=== PATIENT | female | born 1985 | race Caucasian/White ===

== ENCOUNTER 2017-01-10 14:38 | Emergency (ER) | payer OTHER ==
[2017-01-10] MEDS ORDERED: KETOROLAC TROMETHAMINE 60 MG/2 ML SDV IM ONE (16:13)
--- NOTE | 2017-01-10 16:20 | ER Document Report ---
ED Extremity Problem, Upper - General Chief Complaint: Shoulder Pain Stated Complaint: RIGHT SHOULDER PAIN Time Seen by Provider: 01/10/17 16:04 Mode of Arrival: Ambulatory Information source: Patient Notes: 28-year-old female presents to ED for right shoulder pain. She states she woke up last week with her shoulder stiff and sore. States at that night each night it has become progressively more sore and painful until at work she was not able to lift her hand above her head. At this time she is not able to lift her hand and arm very high without a lot of pain. States she took a half a Percocet last night with some help other than that she has not been using ice heat or ibuprofen. TRAVEL OUTSIDE OF THE [place] IN LAST 30 DAYS: No - HPI Patient complains to provider of: Shoulder Onset: Other - 9 days Recent injury: No Where: Home Quality of pain: Sharp, Throbbing Severity of pain: Moderate Pain Level: 4 - She moves her arm Associated symptoms: None Exacerbated by: Movement Relieved by: Rest, Positioning Similar symptoms previously: No Recently seen / treated by doctor: No - Related Data Allergies/Adverse Reactions: nitrous oxide [Nitrous Oxide] Allergy (Verified 01/10/17 15:22) Past Medical History - General Information source: Patient - Social History Smoking Status: Current Every Day Smoker Cigarette use (# per day): Yes - 1 pack every 2 week Chew tobacco use (# tins/day): No Smoking Education Provided: Yes - 1 minute Frequency of alcohol use: Social Drug Abuse: None 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 Lives with: Family Family History: None, Reviewed & Not Pertinent Patient has suicidal ideation: No Patient has homicidal ideation: No - Past Medical History Cardiac Medical History: Reports: None Pulmonary Medical History: Reports: None EENT Medical History: Reports: None Neurological Medical History: Reports: None Endocrine Medical History: Reports: None Renal/ Medical History: Reports: Hx Ovarian Cysts Malignancy Medical History: Reports: None GI Medical History: Reports: None Musculoskeltal Medical History: Reports Hx Musculoskeletal Trauma Skin Medical History: Reports None Psychiatric Medical History: Reports: None Traumatic Medical History: Reports: Hx Fractures Infectious Medical History: Reports: None Past Surgical History: Reports: Hx Breast Surgery - augmentation - Immunizations Hx Diphtheria, Pertussis, Tetanus Vaccination: No Review of Systems - Review of Systems Constitutional: No symptoms reported EENT: No symptoms reported Cardiovascular: No symptoms reported Respiratory: No symptoms reported Gastrointestinal: No symptoms reported Genitourinary: No symptoms reported Female Genitourinary: No symptoms reported Musculoskeletal: Joint pain, Muscle pain, Other - Shoulder pain and stiffness Skin: No symptoms reported Hematologic/Lymphatic: No symptoms reported Neurological/Psychological: No symptoms reported -: Yes All other systems reviewed and negative Physical Exam - Vital signs Vitals: Temp Pulse Resp BP Pulse Ox 97.9 F 69 18 113/63 97 01/10/17 15:25 01/10/17 15:25 01/10/17 15:25 01/10/17 15:25 01/10/17 15:25 Interpretation: Normal - General General appearance: Appears well, Alert - HEENT Head: Normocephalic, Atraumatic Eyes: Normal Pupils: PERRL - Respiratory Respiratory status: No respiratory distress Chest status: Nontender Breath sounds: Normal Chest palpation: Normal - Cardiovascular Rhythm: Regular Heart sounds: Normal auscultation Murmur: No - Abdominal Inspection: Normal Distension: No distension Bowel sounds: Normal Tenderness: Nontender Organomegaly: No organomegaly - Back Back: Normal, Nontender - Extremities General upper extremity: Normal inspection, Normal color, Normal temperature General lower extremity: Normal inspection, Nontender, Normal color, Normal ROM , Normal temperature, Normal weight bearing. No: Obey's sign Shoulder: Tender, Limited ROM - Pain. No: Abrasion, Deformity, Dislocation, Ecchymosis, Instability, Laceration Arm: Tender - Neurological Neuro grossly intact: Yes Cognition: Normal Orientation: AAOx4 [place] Coma Scale Eye Opening: Spontaneous [place] Coma Scale Verbal: Oriented [place] Coma Scale Motor: Obeys Commands [place] Coma Scale Total: 15 Speech: Normal Motor strength normal: LUE, RUE, LLE, RLE Sensory: Normal - Psychological Associated symptoms: Normal affect, Normal mood - Skin Skin Temperature: Warm Skin Moisture: Dry Skin Color: Normal Course - Re-evaluation Re-evalutation: 01/10/17 20:57 Discussed chest x-ray with patient. Patient given instructions for range of motion for shoulder use of ibuprofen, prescription for muscle relaxers, and instructions for ice and heat. Patient also instructed to follow-up with orthopedic. - Vital Signs Vital signs: Temp Pulse Resp BP Pulse Ox 97.9 F 69 18 113/63 97 01/10/17 15:25 01/10/17 15:25 01/10/17 15:25 01/10/17 15:25 01/10/17 15:25 - Diagnostic Test Radiology reviewed: Image reviewed, Reports reviewed Discharge - Discharge Clinical Impression: Right shoulder pain Qualifiers: Chronicity: acute Qualified Code(s): M25.511 - Pain in right shoulder Condition: Stable Disposition: HOME, SELF-CARE Instructions: Exercise Program for the Shoulder ([facility]) Additional Instructions: You were seen today for right shoulder pain. Your x-rays did not show any radiological evidence of injury. Your pain is muscular. I am going to give you some exercises to do with your shoulder. Recommend ibuprofen every 8 hours. We will give you the name and number of orthopedics to follow-up with. Do not hold your shoulder stiff as it will make the pain worse and could cause a frozen shoulder. Ibuprofen Ibuprofen is an excellent, safe drug for pain control. In addition, it has potent antiinflammatory effects which are beneficial, especially in the treatment of injuries, arthritis, or tendonitis. It's best to take ibuprofen with food. Persons with ulcer disease or allergy to aspirin should notify their physician of this before taking ibuprofen. Take the medication exactly as prescribed. Don't take additional doses unless instructed to do so by your doctor. If you develop wheezing, shortness of breath, hives, faintness, stomach pain, vomiting, or dark black stools, return for re-evaluation at once. ICE PACKS: Apply ice packs frequently against the painful area. Many different schedules are recommended, such as "20 minutes on, 20 minutes off" or "one hour ice, two hours rest." If you need to work, you may need to go longer between ice treatments. You should plan to have the area ice packed AT LEAST one fourth of the time. The ice should be applied over the wrap, tape, or splint, or over a layer of cloth -- not directly against the skin. Some ice bags have a built-in cloth and can be put directly on the skin. WARM PACKS: After approximately two days, apply gentle heat (such as a heating pad or hot water bottle) for about 20 to 30 minutes about every two hours -- at least four times daily. Warmth and elevation will help you make a more rapid recovery , and will ease the pain considerably. Do not use HOT heat, and never apply heat for longer than 30 minutes. The continuous heat can invisibly damage skin and muscles -- even when no burn is seen on the surface. Damaged muscles can make you MORE sore. MUSCLE RELAXERS: Muscle relaxing medications are usually prescribed for acute muscle spasm or injury to the neck and back. They are often combined with antiinflammatory pain medication for increased relief. You may stop the muscle relaxer when the pain and stiffness have improved. Start the medication again if spasms recur. Muscle relaxers may cause drowsiness, especially with the first dose. Do not operate machinery or drive while under the effects of the medication. Most muscle relaxers last up to 24 hours. Do not combine the medication with alcohol. FOLLOW-UP CARE: If you have been referred to a physician for follow-up care, call the physician s office for an appointment as you were instructed or within the next two days. If you experience worsening or a significant change in your symptoms, notify the physician immediately or return to the Emergency Department at any time for re-evaluation. Prescriptions: Ibuprofen 600 mg PO Q8HP PRN #20 tablet PRN Reason: Cyclobenzaprine HCl [Flexeril 5 mg Tablet] 5 mg PO TID #15 tablet Forms: Smoking Cessation Education, Return to Work Referrals: RACHID SEPULVEDA MD [ACTIVE STAFF] - Follow up as needed
--- NOTE | 2017-01-10 16:44 | RADIOLOGY REPORT (SQ) ---
EXAM DESCRIPTION: SHOULDER RIGHT 2 OR MORE VIEWS COMPLETED DATE/TIME: 01/10/2017 4:35 pm REASON FOR STUDY: pain decreased ROM COMPARISON: None. NUMBER OF VIEWS: Three views. TECHNIQUE: Internal rotation, external rotation, and Y view images acquired of the right shoulder. LIMITATIONS: None. FINDINGS: MINERALIZATION: Normal. BONES: No acute fracture or dislocation. No worrisome bone lesions. JOINTS: No dislocation. VISUALIZED LUNGS AND RIBS: No pneumothorax. No rib fracture. SOFT TISSUES: No radiopaque foreign body. OTHER: No other significant finding. IMPRESSION: NEGATIVE STUDY OF THE RIGHT SHOULDER. NO RADIOGRAPHIC EVIDENCE OF ACUTE INJURY. TECHNICAL DOCUMENTATION: JOB ID: [id number] [employer]- All Rights Reserved
[2017-01-10 17:52] VITALS: BP 114/68
== END 2017-01-10 17:36 | disposition home or self-care (01) ==
LOC: ER 14:38
DX: M25.511 Pain in right shoulder (principal); F17.210 Nicotine dependence, cigarettes, uncomplicated
CPT/HCPCS: 99283; 96372; 73030; J1885

== ENCOUNTER → 2017-10-01 | Outpatient (CLI) | payer SELFPAY ==
--- NOTE | 2017-10-01 16:23 | RADIOLOGY REPORT (SQ) ---
EXAM DESCRIPTION: U/S OB 14+ TRNABD 1GES W/O DOP COMPLETED DATE/TIME: 10/01/2017 2:39 pm REASON FOR STUDY: Z34.81 ENCOUNTER FOR SUPRVSN OF NORMAL , FIRST TRIMESTER Z34.81 ENCOUNTE R FOR SUPRVSN OF NORMAL , FIRST TRIM COMPARISON: None. TECHNIQUE: Static and Dynamic grayscale imaging performed of gravid uterus using transabdominal appr oach. Additional selected color Doppler and spectral images recorded. All stored on PACS. LIMITATIONS: None. FINDINGS: EGA: 14 weeks 5 days LISA: 03/27/2018 EFW: Not calculated PERCENTILE: Not calculated CONSTANTIN: Adequate PLACENTA: Anterior GRADE: I PRESENTATION: Variable ANATOMY: HEART RATE: 123 beats per minute. FOUR CHAMBER HEART: Not visualized THREE VESSEL CORD: Not visualized CORD INSERTION: Not visualized KIDNEYS AND BLADDER: Not visualized STOMACH: Identified SPINE: Normal as visualized. BRAIN AND LATERAL VENTRICLES: Not well seen OTHER: No other significant finding. MATERNAL ADNEXA: Maternal ovaries not visualized. CERVICAL LENGTH: 6 cm Closed. OTHER: No other significant finding. IMPRESSION: LIVING INTRAUTERINE . ESTIMATED GESTATIONAL AGE 14 weeks 5 days Limited anatomic survey Trimester of : Second trimester - 13 weeks 1 day to 27 weeks 6 days. TECHNICAL DOCUMENTATION: JOB ID: [id number] [employer] All Rights Reserved Reading location - IP/workstation name: [email or web address]
== END ==
LOC: RAD 13:46
PROVIDERS: ATTEND Nurse Practitioner Women's Health
DX: Z34.82 Encounter for supervision of other normal pregnancy, second trimester (principal)
CPT/HCPCS: 76805

== ENCOUNTER → 2018-10-28 | Outpatient (CLI) | payer MEDICAID ==
--- NOTE | 2018-10-28 16:09 | RADIOLOGY REPORT (SQ) ---
EXAM DESCRIPTION: U/S [id number] TRNABD 1GES W/ODOP COMPLETED DATE/TIME: 10/28/2018 3:29 pm REASON FOR STUDY: Z34.81 ENCOUNTER FOR SUPRVSN OF NORMAL , FIRST TRIMESTER Z34.81 ENCOUNTE R FOR SUPRVSN OF NORMAL , FIRST TRIM COMPARISON: 10/01/2017 TECHNIQUE: Transabdominal static and realtime grayscale images acquired of the pelvis. Additional se lected spectral and color Doppler images recorded. All images stored on PACs. bHCG: Not available. CLINICAL DATES: A weeks 5 days. LIMITATIONS: None. FINDINGS: FETUS: Single Living intrauterine . ULTRASOUND EGA: 8 weeks 3 days. ULTRASOUND LISA: 06/06/2019 EFW: Not applicable less than 20 weeks. CRL: Present. FHR: 180 beats per minute. SURVEY: Too early to assess. AMNIOTIC FLUID: Adequate amount. PLACENTA: Not yet developed due to early gestation. SUBCHORIONIC BLEED: Yes. SIZE OF BLEED: 2.5 x 1.3 x 1.3 cm. UTERUS: No masses. No anomalies. CERVICAL LENGTH: 3.1 cm. Closed. RIGHT ADNEXA: Ovary not identified due to poor acoustical window. No adnexal free fluid. No adnexal masses. LEFT ADNEXA: Normal ovary with normal vascular flow. No adnexal free fluid. No adnexal masses. FREE FLUID: None. OTHER: No other significant finding. IMPRESSION: LIVING INTRAUTERINE . EGA A WEEKS 3 DAYS. THERE IS A SMALL SUBCHORIONIC BLEED. Trimester of : First - 0 to 13 weeks. TECHNICAL DOCUMENTATION: JOB ID: [id number]- All Rights Reserved rev-12/20 Reading location - IP/workstation name: [email or web address]
== END ==
LOC: RAD 14:49
PROVIDERS: ATTEND Midwife
DX: Z34.81 Encounter for supervision of other normal pregnancy, first trimester (principal)
CPT/HCPCS: 76801

== ENCOUNTER 2018-12-06 21:42 | Emergency (ER) | payer MEDICAID ==
[2018-12-06] MEDS ORDERED: NORMAL SALINE 1000 ML 1,000 ML IV ONE (22:54)
[2018-12-06] MEDS ORDERED: METOCLOPRAMIDE HCL INJ/PF 10 MG/2 ML SDV IV ONE (22:55)
--- NOTE | 2018-12-06 23:17 | ER Document Report ---
ED General - General Chief Complaint: Vomiting Stated Complaint: VOMITING Time Seen by Provider: 12/06/18 22:49 Primary Care Provider: JAD JEFF CNM [Primary Care Provider] - Follow up as needed Notes: Patient is a pleasant 33-year-old female who presents with complaint of vomiting and diarrhea. Patient is 14 weeks . She says she sometimes have this some morning sickness but says that this very well controlled. Said today after eating chicken from [employer] she started having vomiting and diarrhea. Blood in her stool. No blood in her emesis. No fevers. She says she has some mild epigastric pain when she vomits but otherwise denies any abdominal pain. No abnormal vaginal bleeding or discharge. No other complaints at this time. TRAVEL OUTSIDE OF THE [place] IN LAST 30 DAYS: No - Related Data Allergies/Adverse Reactions: nitrous oxide [Nitrous Oxide] Allergy (Verified 12/06/18 21:49) Past Medical History - Social History Smoking Status: Never Smoker Frequency of alcohol use: None Drug Abuse: None Family History: None, Reviewed & Not Pertinent Patient has suicidal ideation: No Patient has homicidal ideation: No Renal/ Medical History: Reports: Hx Ovarian Cysts. Denies: Hx Peritoneal Dialysis Musculoskeletal Medical History: Reports Hx Musculoskeletal Trauma Traumatic Medical History: Reports: Hx Fractures Past Surgical History: Reports: Hx Breast Surgery - augmentation - Immunizations Hx Diphtheria, Pertussis, Tetanus Vaccination: No Review of Systems - Review of Systems Notes: My Normal Review Basic REVIEW OF SYSTEMS: CONSTITUTIONAL : Denies fever, chills, or sweats. Denies recent illness. EENT: Denies eye, ear, throat, or mouth pain or symptoms. Denies nasal or sinus congestion. RESPIRATORY: Denies cough, cold, or chest congestion. Denies shortness of breath, difficulty breathing, or wheezing. GASTROINTESTINAL: Mild epigastric pain. Vomiting and diarrhea. GENITOURINARY: Denies difficulty urinating, painful urination, burning, frequency, or blood in urine. FEMALE GENITOURINARY: Denies vaginal bleeding, abnormal or irregular periods. 14 weeks MUSCULOSKELETAL: Denies neck or back pain or joint pain or swelling. SKIN: Denies rash or skin lesions. NEUROLOGICAL: Denies altered mental status or loss of consciousness. Denies headache. Denies weakness or paralysis or loss of use of either side. Denies problems with gait or speech. Denies sensory or motor loss. ALL OTHER SYSTEMS REVIEWED AND NEGATIVE. Physical Exam - Vital signs Vitals: Temp Pulse Resp BP Pulse Ox 98.4 F 117 H 12 123/68 100 12/06/18 21:48 12/06/18 21:48 12/06/18 21:48 12/06/18 21:48 12/06/18 21:48 - Notes Notes: General Appearance: Well nourished, alert, cooperative, no acute distress, no obvious discomfort. Well-appearing. Vitals: reviewed, See vital signs table. Eyes: PERRL, EOMI, Conjuctiva clear Mouth: No decreasd moisture Lungs: No wheezing, No rales, No rhonci, No accessory muscle use, good air exchange bilaterally. Heart: Normal rate, Regular rythm, No murmur, no rub Abdomen: Normal BS, soft, No rigidity, mild epigastric pain palpation. Remainder of abdomen is nontender. No right upper quadrant tenderness., No guarding, no rebound, no abdominal masses, no organomegaly Extremities: good pulses in all extremities, no swelling or tenderness in the extremities, no edema. Skin: warm, dry, appropriate color, no rash Neuro: speech clear, oriented x 3, normal affect, responds appropriately to questions. Course - Re-evaluation Re-evalutation: 12/07/18 00:25 Patient's nausea is gone. She feels much improved. She looks well. Bedside heart tones performed by the nurse 110. I suspect that this is most likely the patient's heart rate. I therefore did a bedside ultrasound which showed intrauterine with good movement and a heart rate of 165. The Reglan worked well for the patient. I will write a prescription for this. I encouraged her to return to ER immediately if she has intractable vomiting, bloody stools, fevers, abdominal pain, or if she feels unwell in any way. Patient agrees with plan and will be discharged home. Dictation of this chart was performed using voice recognition software; therefore, there may be some unintended grammatical errors. - Vital Signs Vital signs: Temp Pulse Resp BP Pulse Ox 98.4 F 117 H 12 123/68 100 12/06/18 21:48 12/06/18 21:48 12/06/18 21:48 12/06/18 21:48 12/06/18 21:48 - Laboratory Result Diagrams: 12/06/18 23:28 12/06/18 23:28 Laboratory results interpreted by me: 12/06/18 12/06/18 23:28 23:28 RDW 14.1 H Seg Neutrophils % 89.2 H Lymphocytes % 6.2 L Absolute Lymphocytes 0.4 L Sodium 136.6 L Potassium 3.3 L Discharge - Discharge Clinical Impression: Hypokalemia, Vomiting and diarrhea Condition: Good Disposition: HOME, SELF-CARE Additional Instructions: Your potassium was just a little bit low. We therefore given you some potassium pills here. Please eat potassium containing foods such as bananas. Please eat a bland diet over the next 24 hours. Please drink lots of non-caffeinated liquids. Please take the Reglan as needed for nausea and vomiting. Return to ER immediately if you have fevers, abdominal pain, bloody stools, or intractable vomiting. Follow-up with your OB doctor in 3 to 4 days for reevaluation. Prescriptions: Metoclopramide HCl [Reglan 10 mg Tablet] 1 tab PO ASDIR PRN #25 tablet PRN Reason:
[2018-12-06 23:39] LABS: ABSOLUTE LYMPHOCYTES (AUTO) 0.4 10^3/uL (0.5-4.7); ABSOLUTE MONOCYTES (AUTO) 0.3 10^3/uL (0.1-1.4); ABSOLUTE NEUT (AUTO) 5.9 10^3/uL (1.7-8.2); BASOPHILS % (AUTO) 0.3 % (0-2); EOSINOPHILS % (AUTO) 0.2 % (0-6); HEMOGLOBIN 12.4 g/dL (12.0-15.5); LYMPHOCYTES % (AUTO) 6.2 % (13-45); MEAN CORPUSCULAR HEMOGLOBIN 30.2 pg (27.0-33.4); MEAN CORPUSCULAR HGB CONC 34.6 g/dL (32.0-36.0); MEAN CORPUSCULAR VOLUME 87 fl (80-97); MONOCYTES % (AUTO) 4.1 % (3-13); PLATELET COUNT 183 10^3/uL (150-450); RED BLOOD COUNT 4.12 10^6/uL (3.72-5.28); RED CELL DISTRIBUTION WIDTH 14.1 % (11.5-14.0); SEGMENTED NEUTROPHILS % (AUTO) 89.2 % (42-78); TOTAL CELLS COUNTED % (AUTO) 100 %; WHITE BLOOD COUNT 6.7 10^3/uL (4.0-10.5)
[2018-12-07 00:05] LABS: ALANINE AMINOTRANSFERASE 23 U/L (9-52); ALBUMIN 3.8 g/dL (3.5-5.0); ALKALINE PHOSPHATASE 43 U/L (38-126); ANION GAP 11 (5-19); ASPARTATE AMINO TRANSFERASE 18 U/L (14-36); BILIRUBIN,DIRECT 0.2 mg/dL (0.0-0.4); BILIRUBIN,TOTAL 0.4 mg/dL (0.2-1.3); BLOOD UREA NITROGEN 10 mg/dL (7-20); CALCIUM 8.8 mg/dL (8.4-10.2); CARBON DIOXIDE 25 mmol/L (22-30); CHLORIDE 101 mmol/L (98-107); GLUCOSE 101 mg/dL (75-110); POTASSIUM 3.3 mmol/L (3.6-5.0); SODIUM 136.6 mmol/L (137-145); TOTAL PROTEIN 6.6 g/dL (6.3-8.2)
[2018-12-07] MEDS ORDERED: POTASSIUM CHLORIDE 10 MEQ CAPSULE.ER PO ONE (00:18)
[2018-12-07] MEDS ORDERED: MAGNESIUM OXIDE 400 MG TABLET PO ONE (00:18)
[2018-12-07] MEDS ORDERED: NORMAL SALINE 1000 ML 1,000 ML IV ONE (00:53)
[2018-12-07 01:54] VITALS: BP 116/59
== END 2018-12-07 01:53 | disposition home or self-care (01) ==
LOC: ER 21:42
DX: O21.9 Vomiting of pregnancy, unspecified (principal); O26.892 Other specified pregnancy related conditions, second trimester; R19.7 Diarrhea, unspecified; R10.13 Epigastric pain; O99.282 Endocrine, nutritional and metabolic diseases complicating pregnancy, second trimester; E87.6 Hypokalemia; Z3A.14 14 weeks gestation of pregnancy
CPT/HCPCS: 99283; 96361; 96374; 36415; 85025; 80053; J3490; J2765; J7030 ×2

== ENCOUNTER 2019-05-07 16:38 | Outpatient (CLI) | payer MEDICAID ==
--- NOTE | 2019-05-07 17:24 | Non Stress Test Report ---
Non Stress Test Datetime Report Generated by CPN: 05/07/2019 17:24 DEMOGRAPHIC EGA NST: 35.6 INDICATION Indication for Study: Polyhydramnios MONITORING Monitor Explained: Monitor Explained; Test Explained; Patient Verbalized Understanding Time on Monitor: 05/07/2019 16:48 Time off Monitor: 05/07/2019 17:12 NST Duration: 24 NST INTERVENTIONS NST Interventions: PO Hydration Physician Notified NST: J.Bailey, CNM BABY A: [id number] BABY A Movement : Present Contraction Frequency : n/a FHR Baseline : 125 Accelerations : 15X15 Decelerations : None Variability : Moderate 6-25bpm NST Review: Meets Criteria for Reactive NST NST Review and Verified By : EUNICE Nath Results: Reactive NST REPORT Report Trigger: Send Report
== END 2019-05-07 17:31 | disposition home or self-care (01) ==
LOC: LC 16:38
PROVIDERS: ATTEND Obstetrics & Gynecology
PROC: 4A1HXCZ Monitoring of Products of Conception, Cardiac Rate, External Approach (ICD-10-PCS; principal; 2019-05-07)
DX: O40.3XX0 Polyhydramnios, third trimester, not applicable or unspecified (principal); O09.523 Supervision of elderly multigravida, third trimester; Z3A.35 35 weeks gestation of pregnancy
CPT/HCPCS: 59025

== ENCOUNTER 2019-05-11 16:37 | Outpatient (CLI) | payer MEDICAID ==
--- NOTE | 2019-05-11 18:44 | Non Stress Test Report ---
Non Stress Test Datetime Report Generated by CPN: 05/11/2019 18:43 DEMOGRAPHIC EGA NST: 36.3 MONITORING Monitor Explained: Monitor Explained; Test Explained; Patient Verbalized Understanding Time on Monitor: 05/11/2019 16:52 Time off Monitor: 05/11/2019 18:26 NST Duration: 94 NST INTERVENTIONS NST Interventions: None Physician Notified NST: K. Sneed, CNM BABY A: [id number] BABY A Movement : Present Contraction Frequency : none FHR Baseline : 135 Accelerations : 15X15 Decelerations : None Variability : Moderate 6-25bpm NST Review: Meets Criteria for Reactive NST NST Review and Verified By : C Juana RN NST Results: Reactive NST COMMENTS NST Comments: Dr Charli on unit reviewing FHT strip NST REPORT Report Trigger: Send Report
--- NOTE | 2019-05-11 19:22 | RADIOLOGY REPORT (SQ) ---
EXAM DESCRIPTION: U/S PROFILE W/O STRESS COMPLETED DATE/TIME: 05/11/2019 6:56 pm REASON FOR STUDY: BPP COMPARISON: None. TECHNIQUE: Limited payton-scale realtime and static images of the fetus to measure specified parameter s. LIMITATIONS: None. FINDINGS: HEART RATE: 150 beats per minute. CONSTANTIN: 22.3 cm. BREATHING MOVEMENT: 2 points. MOVEMENT: 2 points. POSTURE AND TONE: 2 points. QUALITATIVE CONSTANTIN: 2 points. OTHER: No other significant finding. IMPRESSION: BIOPHYSICAL PROFILE: 03/12. Trimester of : Third - 28 weeks to delivery COMMENT: BREATHING MOVEMENTS: 2 POINTS: PRESENT 0 POINTS: ABSENT MOTION: 2 POINTS: PRESENT 0 POINTS: ABSENT TONE: 2 POINTS: PRESENT 0 POINTS: ABSENT AMNIOTIC FLUID VOLUME: 2 POINTS: LARGEST POCKET GREATER THAN 2 CM DEPTH. 0 POINTS: NO POCKET OF 2 CM. TECHNICAL DOCUMENTATION: JOB ID: [id number] [employer]- All Rights Reserved Reading location - IP/workstation name: [email or web address]
== END 2019-05-11 19:16 | disposition home or self-care (01) ==
LOC: LC 16:37
PROVIDERS: ATTEND Obstetrics & Gynecology
PROC: 4A1HXCZ Monitoring of Products of Conception, Cardiac Rate, External Approach (ICD-10-PCS; principal; 2019-05-11)
DX: O09.523 Supervision of elderly multigravida, third trimester (principal); Z3A.36 36 weeks gestation of pregnancy
CPT/HCPCS: 59025; 76819

== ENCOUNTER 2019-05-28 15:01 | Inpatient (IN) | payer MEDICAID ==
[2019-05-28 16:07] LABS: APPEARANCE,URINE CLEAR; BILIRUBIN,URINE NEGATIVE (NEGATIVE); COLOR,URINE YELLOW; GLUCOSE, URINE NEGATIVE (NEGATIVE); KETONES,URINE NEGATIVE (NEGATIVE); LEUKOCYTE ESTERASE,URINE SMALL (NEGATIVE); NITRITE,URINE NEGATIVE (NEGATIVE); PROTEIN,URINE NEGATIVE (NEGATIVE); URINE SPECIFIC GRAVITY 1.006; UROBILINOGEN,URINE NEGATIVE mg/dL (<2.0)
[2019-05-28 16:42] LABS: URINE AMPHETAMINES SCREEN NEGATIVE; URINE BARBITURATES SCREEN NEGATIVE; URINE BENZODIAZEPINES SCREEN NEGATIVE; URINE COCAINE SCREEN NEGATIVE; URINE MARIJUANA (THC) SCREEN NEGATIVE; URINE METHADONE SCREEN NEGATIVE; URINE PHENCYCLIDINE SCREEN NEGATIVE
[2019-05-28] MEDS ORDERED: RINGERS SOLUTION,LACTATED 1,000 ML IV ONE (20:10)
[2019-05-28] MEDS ORDERED: RINGERS SOLUTION,LACTATED 1,000 ML IV PRN (20:10)
[2019-05-28 20:38] LABS: ABSOLUTE BASOPHILS # (AUTO) 0.1 10^3/uL (0.0-0.2); ABSOLUTE EOSINOPHILS # (AUTO) 0.1 10^3/uL (0.0-0.6); ABSOLUTE LYMPHOCYTES (AUTO) 2.8 10^3/uL (0.5-4.7); ABSOLUTE MONOCYTES (AUTO) 0.9 10^3/uL (0.1-1.4); ABSOLUTE NEUT (AUTO) 7.8 10^3/uL (1.7-8.2); BASOPHILS % (AUTO) 0.8 % (0-2); EOSINOPHILS % (AUTO) 0.6 % (0-6); HEMATOCRIT 33.9 % (36.0-47.0); HEMOGLOBIN 11.8 g/dL (12.0-15.5); MEAN CORPUSCULAR HEMOGLOBIN 31.1 pg (27.0-33.4); MEAN CORPUSCULAR HGB CONC 34.8 g/dL (32.0-36.0); MEAN CORPUSCULAR VOLUME 89 fl (80-97); MONOCYTES % (AUTO) 7.7 % (3-13); PLATELET COUNT 144 10^3/uL (150-450); RED BLOOD COUNT 3.79 10^6/uL (3.72-5.28); RED CELL DISTRIBUTION WIDTH 13.3 % (11.5-14.0); SEGMENTED NEUTROPHILS % (AUTO) 66.9 % (42-78); TOTAL CELLS COUNTED % (AUTO) 100 %; WHITE BLOOD COUNT 11.6 10^3/uL (4.0-10.5)
[2019-05-28] MEDS ORDERED: MISOPROSTOL 0.2 MG TABLET ONE (23:55)
[2019-05-28] MEDS ORDERED: LIDOCAINE 1% INJ-PF (10 MG/ML) 30 ML SDV ONE (23:55)
[2019-05-28] MEDS ORDERED: OXYTOCIN/NORMAL SALINE 20 UNIT/1,000 ML RTUINJ ONE (23:55)
[2019-05-28] MEDS ORDERED: FENTANYL/BUPIVACAINE/NS/PF 300 MCG/150 ML RTUINJ EPI ONE (23:55)
[2019-05-28] MEDS ORDERED: OXYTOCIN 10 UNIT/ML VIAL ONE (23:55)
[2019-05-28] MEDS ORDERED: BUPIVACAINE HCL 0.25 % INJ/PF (2.5 MG/1 ML) 30 ML VIAL ONE (23:55)
[2019-05-28] MEDS ORDERED: EPHEDRINE SULFATE INJ 50 MG/1 ML AMPULE ONE (23:55)
--- NOTE | 2019-05-29 03:21 | Admission Physical ---
Datetime Report Generated by CPN: 05/29/2019 03:21 CURRENT ADMISSION Chief Complaint: Uterine Contractions Indication for Induction: Polyhydramnios Admit Impression : Term, Intrauterine ; No Active Labor; Intact Membranes; Induction of Labor Admit Plan: Admit to Unit; Initiate Labor Protocol ALLERGIES Medication Allergies: Yes Medication Allergies: nitrous oxide (05/07/2019) Latex: No Latex Allergies Food Allergies: NONE Environmental Allergies: NONE OBSTETRICAL HISTORY EDC: 06/05/2019 00:00 : 4 Para: 2 Term: 2 : 0 SAB: 1 IAB: 1 Ectopic: 0 Livin Cesareans: 0 VBACs: 0 Multiple Births: 0 Gestational Diabetes: No Rh Sensitization: No Incompetent Cervix: No JACQUELYN: No Infertility: No ART Treatment: No Uterine Anomaly: No IUGR: No Hx Previous C/S: No Macrosomia: No Hx Loss/Stillborn: No PIH: No Hx : No Placenta Previa/Abruption: No Depression/PP Depression: No PTL/PROM: No Post Hemorrhage: No Current Procedures: Ultrasound; NST Obstetrical History Comments: G1- 2003 at 38 weeks, 7lb 5oz female- episiotomy G2- 2005 at 39 weeks, 6lbs 9oz female- episiotomy G3-2017 SAB at 15weeks G4- current poly SEE RECORDS Alcohol: No Marijuana : No Cocaine: No Other Illicit Drugs: No Cigarettes: Former Smoker. 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 Surgery: No Heart Disease: No Hosp/Surgery: Yes Autoimmune Disorder: No Anesthetic Complications: No Kidney Disease: No Abnormal Pap Smear: No Neuro/Epilepsy: No Psychiatric Disorders: No Other Medical Diseases: No Hepatitis/Liver Disease: No Significant Family History: No Varicosities/Phlebitis: No Trauma/Violence : No Thyroid Dysfunction: No Medical History Comments: BREAST AUGMENTATION INFECTIOUS HISTORY Gonorrhea: No Genital Herpes: No Chlamydia: No Tuberculosis: No Syphilis: No Hepatitis: No HIV/AIDS Exposure: No Rash or Viral Illness: No HPV: No PHYSICAL EXAM General: Normal HEENT: Normal Neurologic: Normal Thyroid: Deferred Heart: Normal Lungs: Normal Breast: Deferred Back: Normal Abdomen: Normal Genitourinary Exam: Normal Extremities: Normal DTRs: Normal Pelvic Type: Adequate Vital Signs: Reviewed VAGINAL EXAM Dilatation: 4 Effacement: 80 Station: 0 Contraction Comments: q2 -5 MEMBRANES Membranes: Intact FETUS A EGA: 38.6 Monitoring: External US FHR- Baseline: 145 Variability: Moderate 6-25bpm Accelerations: 15X15 Decelerations: None FHR Category: Category I Presentation: Vertex Admit Comment: 34yo at 38+6ega presents for significant polyhydramnios and irregular contractions. SOme cervical change upon evaluation and due to severe polyhydramnios and advanced cervical dilation recommendations given to admit for IOL. Varicella NI - vaccination pp. Informaseq normal. Polyhydramnios 31.1cm today. GBS negative. Admit for pitocin and AROM. Anticipate . PLANS FOR LABOR AND DELIVERY Labor and Delivery: None Pain Management: Epidural Feeding Preference: Breast Benefit of Breast Feed Discussed: Yes Circumcision: Yes INFORMED CONSENT Informed Consent Obtained: Vaginal Delivery; Induction of Labor; Risks, Benefits and Alternatives Discussed Signature: with User ID: [email or web address]
[2019-05-29] MEDS ORDERED: GLYCERIN/WITCH HAZEL LEAF 1 EACH MED..WIPE TP PRN (03:24)
[2019-05-29] MEDS ORDERED: MAGNESIUM HYDROXIDE SUSP 30 ML UDCUP PO PRN (03:24)
[2019-05-29] MEDS ORDERED: MEASLES,MUMPS&RUBELLA VACC/PF 0.5 ML VIAL SUBCUT PRN (03:24)
[2019-05-29] MEDS ORDERED: DIPH/PERTUSS(ACELL)/TETANUS VAC/PF 0.5 ML SYR (>=10YO) IM PRN (03:24)
[2019-05-29] MEDS ORDERED: MISOPROSTOL 0.2 MG TABLET PR PRN (03:24)
[2019-05-29] MEDS ORDERED: ACETAMINOPHEN 325 MG TABLET PO PRN (03:24)
[2019-05-29] MEDS ORDERED: ZOLPIDEM TARTRATE 5 MG TABLET PO PRN (03:24)
[2019-05-29] MEDS ORDERED: DIBUCAINE 1% OINTMENT 56 GM TP PRN (03:24)
[2019-05-29] MEDS ORDERED: PROMETHAZINE HCL 25 MG SUPP.RECT PR PRN (03:24)
[2019-05-29] MEDS ORDERED: PSEUDOEPHEDRINE HCL 30 MG TABLET PO PRN (03:24)
[2019-05-29] MEDS ORDERED: PROMETHAZINE HCL 25 MG TABLET PO PRN (03:24)
[2019-05-29] MEDS ORDERED: OXYTOCIN/NORMAL SALINE 20 UNIT/1,000 ML RTUINJ IV PRN (03:24)
[2019-05-29] MEDS ORDERED: ACETAMINOPHEN WITH CODEINE #3 TABLET PO PRN (03:24)
[2019-05-29] MEDS ORDERED: NA PHOS,M-B/NA PHOS,DI-BA (ADULT) 133 ML ENEMA PR PRN (03:24)
[2019-05-29] MEDS ORDERED: BENZOCAINE/MENTHOL AEROSOL SPRAY 56 ML TOP PRN (03:24)
[2019-05-29] MEDS ORDERED: PROMETHAZINE HCL INJ 25 MG/1 ML VIAL IV PRN (03:24)
[2019-05-29] MEDS ORDERED: DIPHENHYDRAMINE HCL 25 MG CAPSULE PO PRN (03:24)
--- NOTE | 2019-05-29 04:30 | Delivery Summary ---
Del Sum A-C Datetime Report Generated by CPN: 05/29/2019 04:30 DELIVERY PERSONNEL DELIVERY PERSONNEL: [id number] Delivery Doctor:: Rachael Archuleta MD Labor and Delivery Nurse:: Violet Metcalf RNdepartment head college or university Nurse:: Mitzi Grace RN Head Batcher/MANAGER SALT: Teresajose Slade, ST MATERNAL INFORMATION Delivery Anesthesia: Epidural Medications After Delivery: Pitocin Bolus-Please Comment; Cytotec 1000mcg Per Rectum/Vagina Estimated Blood Loss (ml): 100 Delivery QBL: 100 Delivery QBL Comment: 100ml Maternal Complications: Other Other Maternal Complications: polyhydramnios Complication Details: poly Provider Comments: VMI delivered in GUERO presentation. NO nuchal cord. SHoulders and body delivered without difficulty. Cord doubly clamped and cut and to maternal abd for NRP. Placenta delivered intact spontaneously. FF at U and cytotect 1000mcg per rectum given due to significant poly. Mother and baby stable upon provider leaving the room. no perineal lacerations. LABOR SUMMARY EDC: 06/05/2019 00:00 No. Babies in Womb: 1 Attempted: No Labor Anesthesia: Epidural LABOR INFORMATION Reason for Induction: Polyhydramnios Onset of Labor: 05/29/2019 23:32 Complete Dilatation: 05/29/2019 02:52 Oxytocin: N/A Group B Beta Strep: NEGATIVE Antibiotics # of Doses: 0 Antibiotics Time of Last Dose: 0 Name of Antibiotic Given: 0 Steroids Given: None Reason Steroids Not Administered: Not Applicable MEMBRANES Membranes Rupture Method: Artificial Rupture of Membranes: 05/28/2019 23:32 Length of Rupture (hr): 3.52 Amniotic Fluid Color: Clear Amniotic Fluid Amount: Large Amniotic Fluid Odor: Normal STAGES OF LABOR Stage 1 hr: -20 Stage 1 min: -40 Stage 2 hr: 0 Stage 2 min: 11 Stage 3 hr: 0 Stage 3 min: 5 Total Time in Labor hr: -20 Total Time in Labor min: -24 VAGINAL DELIVERY Episiotomy: None Laceration #1: None Laceration Extension #1: N/A Laceration Repair: Not Applicable Sponge Count Correct: Yes Sharps Count Correct: Yes CSECTION DELIVERY Primary Indication: N/A Secondary Indication: N/A CSection Incidence: N/A Labor: N/A Elective: N/A CSection Incision: N/A BABY A INFORMATION Delivery Date/Time: 05/29/2019 03:03 Method of Delivery: Vaginal Born in Route : No : N/A Forceps: N/A Vacuum Extraction: N/A Shoulder Dystocia : No PRESENTATION/POSITION BABY A Presentation: Cephalic Cephalic Presentation: Vertex Vertex Position: Left Occipital Anterior Breech Presentation: N/A PLACENTA INFORMATION BABY A Placenta Delivery Time : 05/29/2019 03:08 Placenta Method of Delivery: Spontaneous Placenta Status: Delivered SCORES BABY A Heart Rate 1 min: >100 bpm Resp Effort 1 min: Good Cry Reflex Irritability 1 min: Cough or Sneeze or Pulls Away Muscle Tone 1 min: Active Motion Color 1 min: Blue/Pale SCORE 1 MIN: 8 Heart Rate 5 min: >100 bpm Resp Effort 5 min: Good Cry Reflex Irritability 5 min: Cough or Sneeze or Pulls Away Muscle Tone 5 min: Active Motion Color 5 min: Body [place], Extremities Blue SCORE 5 MIN: 9 INFORMATION BABY A Gestational Age at Delivery: 39.0 Gestational Status: Full Term- 39- 40.6 Weeks Infant Outcome : Liveborn Infant Condition : Stable Sex: Male IDENTIFICATION BABY A Verification Date/Time: 05/29/2019 03:13 ID Band Number: [id number] Mother's Name Verified: Yes Infant RN Verifying Infant: R Lesly RN/D [place] RN WEIGHT/LENGTH BABY A Birthweight (gm): 3011 Infant Weight (lb): 6 Weight (oz): 10 Infant Length (in): 17.50 Length (cm): 44.45 CORD INFORMATION BABY A No. Cord Vessels: 3 Nuchal Cord : N/A Cord Blood Taken: Yes-For Storage (Mom's Blood type +) Suction: Mouth; Nose ASSESSMENT BABY A Skin to Skin: Yes BABY B INFORMATION : N/A SIGNATURES Signature: with User ID: [email or web address]
[2019-05-29] MEDS ORDERED: IBUPROFEN 800 MG TABLET ONE (04:52)
[2019-05-29] MEDS: IBUPROFEN 800 MG TABLET PO SCH ×3 (05:01→21:37)
[2019-05-29] MEDS: ACETAMINOPHEN WITH CODEINE #3 TABLET PO PRN (10:47)
[2019-05-29] MEDS: PRENATAL VITAMIN W DHA CAPSULE PO SCH (10:49)
[2019-05-29] MEDS: DOCUSATE SODIUM 100 MG CAPSULE PO SCH (10:49)
[2019-05-29] MEDS: FERROUS SULFATE 325 MG TABLET PO SCH ×2 (10:49→17:10)
[2019-05-29] MEDS: FAMOTIDINE 20 MG TABLET PO SCH ×2 (10:49→21:36)
[2019-05-29] MEDS: SENNOSIDES/DOCUSATE 8.6-50 MG 1 EACH TABLET PO SCH (10:50)
[2019-05-30] MEDS: ACETAMINOPHEN WITH CODEINE #3 TABLET PO PRN (03:44)
[2019-05-30] MEDS: IBUPROFEN 800 MG TABLET PO SCH ×3 (05:44→21:27)
[2019-05-30 06:53] LABS: HEMATOCRIT 35.1 % (36.0-47.0); HEMOGLOBIN 11.8 g/dL (12.0-15.5); MEAN CORPUSCULAR HEMOGLOBIN 30.9 pg (27.0-33.4); MEAN CORPUSCULAR HGB CONC 33.7 g/dL (32.0-36.0); MEAN CORPUSCULAR VOLUME 92 fl (80-97); PLATELET COUNT 122 10^3/uL (150-450); RED BLOOD COUNT 3.83 10^6/uL (3.72-5.28); RED CELL DISTRIBUTION WIDTH 13.5 % (11.5-14.0); WHITE BLOOD COUNT 11.5 10^3/uL (4.0-10.5)
[2019-05-30] MEDS: DOCUSATE SODIUM 100 MG CAPSULE PO SCH ×3 (07:51→18:07)
--- NOTE | 2019-05-30 08:59 | PDOC PROGRESS REPORT ---
Subjective-OB Progress Note for:: 05/30/19 Subjective: Doing well, no c/o, breasatfeeding. voiding Physical Exam (OB) Vital Signs: Temp Pulse Resp BP Pulse Ox 98.3 F 79 18 134/68 H 95 05/29/19 20:02 05/29/19 20:02 05/29/19 20:02 05/29/19 20:02 05/29/19 20:02 Intake & Output 05/29/19 05/30/19 05/31/19 06:59 06:59 06:59 Intake Total 1000 Balance 1000 - PIH/Pre-Eclampsia DTR's: 1 + Clonus: Negative Headache: Absent Epigastric Pain: No Visual Changes: No - Lochia Lochia Amount: Small 10-25 ml Lochia Color: Rubra/Red - Abdomen Description: Soft, Round Hernia Present: No Fundal Description: Firm, Midline Fundal Height: u/u - u/2 Objective-Diagnostic Laboratory: 05/30/19 06:30 05/30/19 06:30 WBC 11.5 H RBC 3.83 Hgb 11.8 L Hct 35.1 L MCV 92 MCH 30.9 MCHC 33.7 RDW 13.5 Plt Count 122 L Assessment and Plan(PN) - Assessment and Plan (1) Gestational thrombocytopenia Qualifiers: Trimester: first trimester Qualified Code(s): O99.111 - Other diseases of the blood and blood-forming organs and certain disorders involving the immune mechanism complicating , first trimester; D69.6 - Thrombocytopenia, unspecified Is this a current diagnosis for this admission?: Yes (2) Polyhydramnios Qualifiers: Trimester: unspecified trimester Is this a current diagnosis for this admission?: Yes - Time Spent with Patient Time with patient: Less than 15 minutes Medications reviewed and adjusted accordingly: Yes - Disposition Anticipated Discharge: Home Within: within 24 hours
[2019-05-30] MEDS: PRENATAL VITAMIN W DHA CAPSULE PO SCH (10:13)
[2019-05-30] MEDS: FERROUS SULFATE 325 MG TABLET PO SCH ×2 (10:13→18:07)
[2019-05-30] MEDS: SENNOSIDES/DOCUSATE 8.6-50 MG 1 EACH TABLET PO SCH (10:13)
[2019-05-30] MEDS: FAMOTIDINE 20 MG TABLET PO SCH ×2 (10:13→21:26)
[2019-05-31] MEDS: IBUPROFEN 800 MG TABLET PO SCH (06:12)
[2019-05-31 08:06] VITALS: BP 106/78
[2019-05-31] MEDS: DOCUSATE SODIUM 100 MG CAPSULE PO SCH (09:36)
[2019-05-31] MEDS: FAMOTIDINE 20 MG TABLET PO SCH (09:36)
[2019-05-31] MEDS: FERROUS SULFATE 325 MG TABLET PO SCH (09:36)
[2019-05-31] MEDS: PRENATAL VITAMIN W DHA CAPSULE PO SCH (09:36)
[2019-05-31] MEDS: SENNOSIDES/DOCUSATE 8.6-50 MG 1 EACH TABLET PO SCH (09:36)
--- NOTE | 2019-05-31 10:44 | PDOC PROGRESS REPORT ---
Subjective-OB Progress Note for:: 05/31/19 Subjective: Doing well, ready to go home, breast feeding, voiding Physical Exam (OB) Vital Signs: Temp Pulse Resp BP Pulse Ox 97.9 F 67 18 106/78 100 05/31/19 07:10 05/31/19 07:10 05/31/19 07:10 05/31/19 07:10 05/31/19 07:10 Intake & Output 05/30/19 05/31/19 06/01/19 06:59 06:59 06:59 Intake Total 1000 400 Balance 1000 400 - PIH/Pre-Eclampsia DTR's: 1 + Clonus: Negative Headache: Absent Epigastric Pain: No Visual Changes: No - Lochia Lochia Amount: Scant < 10 ml Lochia Color: Rubra/Red - Abdomen Description: Soft, Round Hernia Present: No Fundal Description: Firm, Midline Fundal Height: u/u - u/2 Objective-Diagnostic Laboratory: 05/30/19 06:30 Assessment and Plan(PN) - Assessment and Plan (1) Gestational thrombocytopenia Qualifiers: Trimester: first trimester Qualified Code(s): O99.111 - Other diseases of the blood and blood-forming organs and certain disorders involving the immune mechanism complicating , first trimester; D69.6 - Thrombocytopenia, unspecified Is this a current diagnosis for this admission?: Yes (2) Polyhydramnios Qualifiers: Trimester: unspecified trimester Is this a current diagnosis for this admission?: Yes - Time Spent with Patient Time with patient: Less than 15 minutes Medications reviewed and adjusted accordingly: Yes - Disposition Anticipated Discharge: Home Within: within 24 hours
--- NOTE | 2019-05-31 10:48 | PDOC DISCHARGE SUMMARY ---
Impression - Admit/DC Date/PCP Admission Date/Primary Care Provider: 05/28/19 22:52 POWER JEFF MD Discharge Date: 05/31/19 - Discharge Diagnosis (1) Gestational thrombocytopenia Is this a current diagnosis for this admission?: Yes (2) Polyhydramnios Is this a current diagnosis for this admission?: Yes - Additional Information Resuscitation Status: Full Code Discharge Diet: As Tolerated, Regular Discharge Activity: Activity As Tolerated, No Lifting Over 10 Pounds, No Lift ing/Push/Pulling, Pelvic Rest [facility]errals: [facility] [Provider Group] ([facility] 4 weeks) Home Medications: Vits96/Iron Fum/Folic [ Tablet] 1 each PO DAILY 05/07/19 HPI Gestational Age: 39 Reason(s) for Admission: Onset of Labor Admission Note: AROM, poly Procedures: NST, Ultrasound Intrapartum Procedure(s): Spontaneous Vaginal Delivery - wt 6-10, male Hospital Course Hospital Course: routine Results Laboratory Results: WBC 11.5 10^3/uL (4.0-10.5) H 05/30/19 06:30 RBC 3.83 10^6/uL (3.72-5.28) 05/30/19 06:30 Hgb 11.8 g/dL (12.0-15.5) L 05/30/19 06:30 Hct 35.1 % (36.0-47.0) L 05/30/19 06:30 MCV 92 fl (80-97) 05/30/19 06:30 MCH 30.9 pg (27.0-33.4) 05/30/19 06:30 MCHC 33.7 g/dL (32.0-36.0) 05/30/19 06:30 RDW 13.5 % (11.5-14.0) 05/30/19 06:30 Plt Count 122 10^3/uL (150-450) L 05/30/19 06:30 Lymph % (Auto) 24.0 % (13-45) 05/28/19 20:27 [place]yer % (Auto) 7.7 % (3-13) 05/28/19 20:27 Eos % (Auto) 0.6 % (0-6) 05/28/19 20:27 Baso % (Auto) 0.8 % (0-2) 05/28/19 20:27 Absolute Neuts (auto) 7.8 10^3/uL (1.7-8.2) 05/28/19 20:27 Absolute Lymphs (auto) 2.8 10^3/uL (0.5-4.7) 05/28/19 20:27 Absolute Monos (auto) 0.9 10^3/uL (0.1-1.4) 05/28/19 20:27 Absolute Eos (auto) 0.1 10^3/uL (0.0-0.6) 05/28/19 20:27 Absolute Basos (auto) 0.1 10^3/uL (0.0-0.2) 05/28/19 20:27 Seg Neutrophils % 66.9 % (42-78) 05/28/19 20:27 Urine Color YELLOW 05/28/19 15:11 Urine Appearance CLEAR 05/28/19 15:11 Urine pH 7.0 (5.0-9.0) 05/28/19 15:11 Ur Specific [place] 1.006 05/28/19 15:11 Urine Protein NEGATIVE mg/dL (NEGATIVE) 05/28/19 15:11 Urine Glucose (UA) NEGATIVE mg/dL (NEGATIVE) 05/28/19 15:11 Urine Ketones NEGATIVE mg/dL (NEGATIVE) 05/28/19 15:11 Urine Blood NEGATIVE (NEGATIVE) 05/28/19 15:11 Urine Nitrite NEGATIVE (NEGATIVE) 05/28/19 15:11 Urine Bilirubin NEGATIVE (NEGATIVE) 05/28/19 15:11 Urine Urobilinogen NEGATIVE mg/dL (<2.0) 05/28/19 15:11 Ur Leukocyte Esterase SMALL (NEGATIVE) H 05/28/19 15:11 Urine Ascorbic Acid NEGATIVE (NEGATIVE) 05/28/19 15:11 Urine Opiates Screen NEGATIVE 05/28/19 15:11 Urine Methadone Screen NEGATIVE 05/28/19 15:11 Ur Barbiturates Screen NEGATIVE 05/28/19 15:11 Ur Phencyclidine Scrn NEGATIVE 05/28/19 15:11 Ur Amphetamines Screen NEGATIVE 05/28/19 15:11 U Benzodiazepines Scrn NEGATIVE 05/28/19 15:11 Urine Cocaine Screen NEGATIVE 05/28/19 15:11 U Marijuana (THC) Screen NEGATIVE 05/28/19 15:11 RPR NONREACTIVE (NONREACTIVE) 05/28/19 20:27 Blood Type A POSITIVE 05/28/19 20:27 Antibody Screen NEGATIVE 05/28/19 20:27 Plan Health Concerns: routine pp Plan of Treatment: baby home with mother Goals: routine pp course Time Spent: Less than 30 Minutes
== END 2019-05-31 12:45 | disposition home or self-care (01) | DRG 806 ==
LOC: LC 15:01 → LR 22:52 → 2S 05-29 10:30
PROVIDERS: ADMIT Student in an Organized Health Care Education/Training Program; ATTEND Student in an Organized Health Care Education/Training Program
PROC: 10907ZC Drainage of Amniotic Fluid, Therapeutic from Products of Conception, Via Natural or Artificial Opening (ICD-10-PCS; 2019-05-28)
PROC: 10E0XZZ Delivery of Products of Conception, External Approach (ICD-10-PCS; principal; 2019-05-29)
DX: O40.3XX0 Polyhydramnios, third trimester, not applicable or unspecified (principal); O99.12 Other diseases of the blood and blood-forming organs and certain disorders involving the immune mechanism complicating childbirth; Z37.0 Single live birth; D69.6 Thrombocytopenia, unspecified; Z3A.39 39 weeks gestation of pregnancy; Z87.891 Personal history of nicotine dependence
CPT/HCPCS: 36415; 80307; 81005; 85025; 85027; 86592; 86850; 86900; 86901; J2590; J3010; J3490

== ENCOUNTER 2019-09-23 05:20 | Day surgery (SDC) | payer MEDICAID ==
[2019-09-16 09:26] LABS: APPEARANCE,URINE CLEAR; BILIRUBIN,URINE NEGATIVE (NEGATIVE); COLOR,URINE YELLOW; GLUCOSE, URINE NEGATIVE (NEGATIVE); KETONES,URINE NEGATIVE (NEGATIVE); LEUKOCYTE ESTERASE,URINE NEGATIVE (NEGATIVE); NITRITE,URINE NEGATIVE (NEGATIVE); PROTEIN,URINE NEGATIVE (NEGATIVE); URINE SPECIFIC GRAVITY 1.021; UROBILINOGEN,URINE NEGATIVE mg/dL (<2.0)
[2019-09-16 09:27] LABS: HEMATOCRIT 36.6 % (36.0-47.0); HEMOGLOBIN 12.9 g/dL (12.0-15.5); MEAN CORPUSCULAR HEMOGLOBIN 30.7 pg (27.0-33.4); MEAN CORPUSCULAR HGB CONC 35.3 g/dL (32.0-36.0); MEAN CORPUSCULAR VOLUME 87 fl (80-97); PLATELET COUNT 230 10^3/uL (150-450); WHITE BLOOD COUNT 5.2 10^3/uL (4.0-10.5)
[~2019-09-23 05:20] MED LIST: LACTATED RINGERS 1000 ML IV PRN; LIDOCAINE 0.5% INJ-PF (5 MG/ML) 50 ML SDV SUBCUT PRN
[2019-09-23] MEDS ORDERED: FENTANYL CITRATE INJ/PF 100 MCG/2 ML AMPUL ONE (06:50)
[2019-09-23] MEDS ORDERED: ONDANSETRON HCL INJ/PF 4 MG/2 ML SDV ONE ×2 (06:51→08:35)
[2019-09-23] MEDS ORDERED: MORPHINE SULFATE 10 MG/ML INJ ONE (06:51)
[2019-09-23] MEDS ORDERED: MIDAZOLAM 2 MG/2 ML INJ ONE (06:51)
[2019-09-23] MEDS ORDERED: DEXAMETHASONE SOD PHOSPHATE INJ 4 MG/1 ML VIAL ONE (06:51)
[2019-09-23] MEDS ORDERED: PROPOFOL INJ 200 MG/20 ML VIAL IV ONE (06:52)
[2019-09-23] MEDS ORDERED: BUPIVACAINE HCL 0.25 % INJ/PF (2.5 MG/1 ML) 30 ML VIAL ONE (07:15)
[2019-09-23] MEDS ORDERED: BUPIVACAINE HCL 0.25 % INJ/PF (2.5 MG/1 ML) 30 ML VIAL INJ ONE (07:42)
--- NOTE | 2019-09-23 08:17 | Operative Report ---
Operative Report DATE OF SURGERY: 09/23/19 PREOPERATIVE DIAGNOSIS: Desire for sterilization POSTOPERATIVE DIAGNOSIS: Same OPERATION: Bilateral tubal occlusion Filshie clips SURGEON: LOBO CHE ANESTHESIA: GA ESTIMATED BLOOD LOSS: Negligible PROCEDURE: Patient placed in dorsal lithotomy position prepped draped sterile fashion. Speculum was placed cervix was visualized and grasped with a single-tooth tenaculum and Hulka tenaculum and was placed in single-tooth tenaculum was removed speculum is removed and the bladder drained with a catheter. Return to the abdomen where a subumbilical incision was made trocar was introduced with insufflation of the abdomen. Laparoscope was placed and visualization of the pelvis which appeared to be normal. Right fallopian tube was identified to the fimbria and a Filshie clip was placed on the proximal portion. The procedure was repeated on the left again noted to be identified to the fimbria are prior to and after banding. No other overt abnormalities were noted laparoscope was removed them deflated and the trocar sleeve was removed. Incision was closed with 0 Vicryl for fascia and 4-0 Vicryl subcutaneous for the skin. The Hulka tenaculum was removed and hemostasis was noted and procedure terminated she was taken to recovery room in good condition
[2019-09-23] MEDS ORDERED: KETOROLAC TROMETHAMINE INJ/PF 30 MG/1 ML SDV ONE (08:43)
[2019-09-23] MEDS ORDERED: OXYCODONE-ACETAMINOPHEN 5-325 MG TABLET ONE (08:55)
[2019-09-23] MEDS ORDERED: ONDANSETRON HCL 8 MG TABLET PO PRN (09:00)
[2019-09-23] MEDS ORDERED: OXYCODONE-ACETAMINOPHEN 5-325 MG TABLET PO PRN (09:00)
[2019-09-23] MEDS ORDERED: IBUPROFEN 800 MG TABLET PO SCH (10:00)
[2019-09-23 10:42] VITALS: BP 121/81
[2019-09-23] MEDS ORDERED: SUCCINYLCHOLINE CHLORIDE INJ 200 MG/10 ML VIAL ONE (12:00)
== END 2019-09-23 10:15 | disposition home or self-care (01) ==
LOC: OROUT 05:20
PROVIDERS: ATTEND Obstetrics & Gynecology Gynecology
DX: Z30.2 Encounter for sterilization (principal); Z87.891 Personal history of nicotine dependence
CPT/HCPCS: 36415; 85027; 81005; 81025; 00851; 58671; J2250; J1100; J3010; J1885; J2270; J0330; J2405; J3490; J2704; 851